=== PATIENT | female | born 1990 ===

== ENCOUNTER 2018-07-09 14:17 | Emergency (ER) | payer OTHER ==
[~2018-07-09] VITALS: Ht 152.4 cm; Wt 79.0 kg
[2018-07-09 14:40] VITALS: BP 144/105
--- NOTE | 2018-07-09 16:57 | ED CARDIAC/CP/PALPITATIONS ---
History of Present Illness General Chief Complaint: Chest Pain Stated Complaint: CHEST PAIN Source: patient Exam Limitations: no limitations Vital Signs & Intake/Output Vital Signs & Intake/Output Vital Signs Date Time Temp Pulse Resp B/P B/P Pulse O2 O2 Flow FiO2 Mean Ox Delivery Rate 07/09 1440 97.7 108 20 144/105 98 Room Air Allergies Coded Allergies: No Known Allergies (07/09/18) Triage Note: PT TO ER C/C MID CHEST PAIN, COUGH, SOB. WAS SEEN AT WALK IN CLINIC AND GIVEN PRESCRIPTIONS. STATES COUGH HAS BEEN NONPRODUCTIVE. HAD EKG DONE IN [place] PRIOR TO TRIAGE. CHARU BARLOW INTO [facility]. Triage Nurses Notes Reviewed? yes Onset: Abrupt Duration: hour(s):, constant Timing: no prior history Quality/Severity: mild, moderate Location: central : No Patient currently breastfeeds: No HPI: 28-year-old female comes into the emergency room for further evaluation of upper chest pain. Patient was sent in by walk in clinic. She reports she's been experiencing some central chest pain that is worse with cough. She complains of some associated short of breath. She denies any fever chills. Nothing seems to make the symptoms better. She comes in for further evaluation. Past History Travel History Traveled to [place] past 21 day No Medical History Any Pertinent Medical History? see below for history Neurological: NONE EENT: NONE Cardiovascular: NONE Respiratory: asthma, PULMONARY STENOSIS Gastrointestinal: NONE Hepatic: NONE Renal: nephrolithiasis Musculoskeletal: NONE Psychiatric: NONE Endocrine: NONE Blood Disorders: NONE Cancer(s): NONE TRAILER TECHNICIAN/Reproductive: NONE Surgical History Surgical History: non-contributory Psychosocial History What is your primary language [place] Tobacco Use: Never used ETOH Use: occasional use Illicit Drug Use: denies illicit drug use Family History Hx Contributory? No Review of Systems Review of Systems Constitutional: Reports: no symptoms. EENTM: Reports: no symptoms. Respiratory: Reports: no symptoms. Cardiovascular: Reports: see HPI. GI: Reports: no symptoms. Genitourinary: Reports: no symptoms. Musculoskeletal: Reports: see HPI. Skin: Reports: no symptoms. Neurological/Psychological: Reports: no symptoms. Hematologic/Endocrine: Reports: no symptoms. Immunologic/Allergic: Reports: no symptoms. All Other Systems: Reviewed and Negative Physical Exam Physical Exam General Appearance: well developed/nourished, no apparent distress, alert Head: atraumatic, normal appearance Eyes: Bilateral: normal appearance. Ears, Nose, Throat: normal ENT inspection, hearing grossly normal Neck: normal inspection Respiratory: normal breath sounds, no respiratory distress, chest wall tenderness Cardiovascular: regular rate/rhythm Extremities: normal inspection Neurologic/Psych: awake, alert Skin: intact, normal color Core Measures ACS in differential dx? No CVA/TIA Diagnosis No Sepsis Present: No Sepsis Focused Exam Completed? No Progress Differential Diagnosis: musculoskeletal pain, myocarditis, pericarditis, pneumonia, pneumothorax, pulmonary embolism, PUD/GERD Plan of Care: Orders Procedure Date/time Status TROPONIN LEVEL 07/09 144 Active HUMAN BETA HCG SCREEN 07/09 144 Active D-DIMER 07/09 1443 Active COMPREHENSIVE METABOLIC PANEL 07/09 144 Active CBC WITHOUT DIFFERENTIAL 07/09 1443 Active EKG 07/09 1418 Active Initial ED EKG: normal sinus rhythm, rate (107) Comments: 07/09/2018 5:02:33 PM Patient was seen in triage. EKG blood work and chest x-ray had been ordered on the patient. When the nurse went to find the patient from the waiting room to bring her back she elpped. She disappeared. She did not make anybody aware is leaving. She was seen in triage by myself as a screening process. They have been recommended that she stay for further evaluation with blood work and chest x-ray. She had understood this but had left without telling anybody. I even tried calling the number provided in the computer. I let the phone ring at least a minimum 10 times with no answer. No answering machine. Departure Departure Disposition: ER WALKOUT Condition: Stable Clinical Impression Primary Impression: Chest wall pain Referrals: Luis Eduardo Guidry MD (PCP/Family) Additional Instructions: pt eloped from ER before any testing could be performed other then EKG. Departure Forms: Customer Survey General Discharge Information Critical Care Note Critical Care Note Critical Care Time: non-applicable Critical Care Time: non-applicable
== END 2018-07-09 16:14 ==
LOC: ERH 14:17
DX: R05 Cough (principal); R07.89 Other chest pain; J45.909 Unspecified asthma, uncomplicated; Q25.6 Stenosis of pulmonary artery; F10.10 Alcohol abuse, uncomplicated
CPT/HCPCS: 93005; 93010; J1885